=== PATIENT | male | born 1975 | race Two or more races ===

== ENCOUNTER 2024-02-12 13:32 | Emergency (ER) | payer BC, OTHER ==
[~2024-02-12] VITALS: Ht 182.9 cm; Wt 100.0 kg
[2024-02-12 14:21] VITALS: BP 135/97; PULSE 88; RESP 16; TEMP 98.9; O2SAT 98
[2024-02-12] MEDS ORDERED: NAPR-746 PO (14:53)
== END 2024-02-12 14:54 | disposition home or self-care (01) ==
LOC: ER 13:32
DX: S93.601A Unspecified sprain of right foot, initial encounter (principal); W18.39XA Other fall on same level, initial encounter; Y92.89 Other specified places as the place of occurrence of the external cause; Y93.89 Activity, other specified; Y99.8 Other external cause status; Z88.0 Allergy status to penicillin
CPT/HCPCS: 73630